=== PATIENT | female | born 1990 | race American Indian/Alaskan Native ===

== ENCOUNTER 2017-05-13 15:02 | Emergency (ER) | payer OTHER ==
--- NOTE | 2017-05-13 15:36 | Emergency Department Report ---
Chief Complaint: Nausea/Vomiting/Diarrhea Stated Complaint: WEAK/DIZZY Time Seen by Provider: 05/13/17 15:33 - HPI History of Present Illness: PT states she woke up nauseated this morning. PT states when she moves she has back pain. - ROS Review of Systems: + irregular period + back pain + nausea - Exam Physical Exam: abd is soft and non tender MSE screening note: Focused history and physical exam performed. Due to findings the following was ordered: labs ED Disposition for MSE Condition: Stable
[2017-05-13 16:06] LABS: Basophils % (Auto) 0.6 % (0.0-1.8); Eosinophils % (Auto) 1.1 % (0.0-4.3); Hematocrit 37.8 % (30.3-42.9); Mean Corpuscular HGB Conc 32 % (30-34); Mean Corpuscular Volume 81 fl (79-97); Platelet Count 281 K/mm3 (140-440); Red Cell Distribution Width 18.8 % (13.2-15.2); White Blood Count 4.2 K/mm3 (4.5-11.0)
[2017-05-13 16:14] LABS: Mean Corpuscular Hemoglobin 26 pg (28-32)
[2017-05-13 16:22] LABS: Alanine Aminotransferase 25 units/L (7-56); Albumin 4.3 g/dL (3.9-5); Albumin/Globulin Ratio 1.1 %; Alkaline Phosphatase 81 units/L (35-129); Anion Gap 28 mmol/L; BUN/Creatinine Ratio 15.71; Blood Urea Nitrogen 11 mg/dL (7-17); Calcium 9.5 mg/dL (8.4-10.2); Carbon Dioxide 14 mmol/L (22-30); Chloride 101.1 mmol/L (98-107); Glucose 78 mg/dL (65-100); Potassium 3.7 mmol/L (3.6-5.0); Sodium 139 mmol/L (137-145); Total Protein 8.2 g/dL (6.3-8.2)
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
[2017-05-13 22:17] VITALS: BP 117/69
== END 2017-05-13 22:00 | disposition home or self-care (01) ==
LOC: ED 15:02
DX: M54.5 Low back pain (principal); F17.200 Nicotine dependence, unspecified, uncomplicated
CPT/HCPCS: 36415; 80053; 84703; 85025; 99283